=== PATIENT | female | born 1945 | race Caucasian/White ===

== ENCOUNTER → 2021-01-15 | Outpatient (CLI) | payer MEDICARE ==
[~2021-01-15] MED LIST: ASPIRIN E.C. 8181 MG PO; COZAAR100 MG PO; GLUCOPHAGE850 MG/TAB PO; HUMALOG100 U/ML SQ; LEVEMIR100 U/ML SQ; LEVOXYL0.05 MG PO; LIPITOR 80MG80 MG PO; MOTRIN 600600 MG/TAB PO; NORCO 325 MG-51 TAB PO; TOPROL XL 50MG50 MG PO
== END ==
LOC: MC.RAD 12:16
DX: C50.912 Malignant neoplasm of unspecified site of left female breast (principal); S06.2X9A Diffuse traumatic brain injury with loss of consciousness of unspecified duration, initial encounter; Z98.82 Breast implant status
CPT/HCPCS: A9541; C1769

== ENCOUNTER 2021-01-16 06:53 | Day surgery (SDC) | payer MEDICARE ==
[2021-01-16] VITALS (7 sets, daily range): BP systolic 152–171; BP diastolic 50–79; PULSE 48–69; TEMP 97–97.3
[~2021-01-16] VITALS: Ht 172.7 cm; Wt 58.5 kg
[2021-01-16] MEDS ORDERED: COZAAR100 MG PO (08:53)
[2021-01-16] MEDS ORDERED: GLUCOPHAGE850 MG/TAB PO (08:54)
[2021-01-16] MEDS ORDERED: LIPITOR 80MG80 MG PO (08:54)
[2021-01-16] MEDS ORDERED: TOPROL XL 50MG50 MG PO (08:54)
[2021-01-16] MEDS ORDERED: ASPIRIN E.C. 8181 MG PO (08:55)
[2021-01-16] MEDS ORDERED: LEVOXYL0.05 MG PO (08:55)
[2021-01-16] MEDS ORDERED: HUMALOG100 U/ML SQ (08:56)
[2021-01-16] MEDS ORDERED: LEVEMIR100 U/ML SQ (08:56)
--- NOTE | 2021-01-16 13:05 | NUR ---
Patient arrived back into [facility]. Patient's daughters at bedside. Report received from [employer], Katerine. Patient reports doing well. Requesting food and drink.
--- NOTE | 2021-01-16 13:20 | NUR ---
Patient still doing well. Tolerated food and drink well with no complaint of pain or nausea.
[2021-01-16] MEDS ORDERED: NORCO 325 MG-51 TAB PO (13:25)
[2021-01-16] MEDS ORDERED: MOTRIN 600600 MG/TAB PO (13:25)
--- NOTE | 2021-01-16 13:50 | NUR ---
Went through discharge instructions with patient and her daughters, questions answered. Verbalized understanding to education. Patient stating she is starting to feel a little discomfort around incisional area. PRN pain medications given per MAY.
--- NOTE | 2021-01-16 14:15 | NUR ---
IV removed with no complications. Patient got dressed and was able to void in restroom. No nausea or vomiting.
--- NOTE | 2021-01-16 14:30 | NUR ---
Patient escorted to emergency department entrance with daughter, Junie. Patient's daughter, Iris pulled up car
== END 2021-01-16 14:30 | disposition home or self-care (01) ==
LOC: SDCO 06:53
DX: C50.411 Malignant neoplasm of upper-outer quadrant of right female breast (principal); I25.119 Atherosclerotic heart disease of native coronary artery with unspecified angina pectoris; E11.9 Type 2 diabetes mellitus without complications; E78.5 Hyperlipidemia, unspecified; I10 Essential (primary) hypertension; E03.9 Hypothyroidism, unspecified; Z87.891 Personal history of nicotine dependence; Z79.82 Long term (current) use of aspirin; Z79.4 Long term (current) use of insulin; Z79.899 Other long term (current) drug therapy; Z79.84 Long term (current) use of oral hypoglycemic drugs; Z79.890 Hormone replacement therapy; Z80.3 Family history of malignant neoplasm of breast; Z80.0 Family history of malignant neoplasm of digestive organs; Z80.1 Family history of malignant neoplasm of trachea, bronchus and lung
CPT/HCPCS: A4648; J0690; J1100; J1885; J2250; J2405; J2704; J3010; J7120

== ENCOUNTER → 2021-01-16 | Outpatient (CLI) | payer MEDICARE | END | disposition still patient (30) | LOC: COL.RAD 07:30 | DX: N63.10 Unspecified lump in the right breast, unspecified quadrant (principal); Z98.890 Other specified postprocedural states; Z85.3 Personal history of malignant neoplasm of breast ==